=== PATIENT | female | born 1950 | race Caucasian/White ===

== ENCOUNTER 2020-03-06 22:24 | Emergency (ER) | payer SELFPAY ==
[~2020-03-06] VITALS: Ht 160 cm; Wt 136.0 kg
--- NOTE | 2020-03-06 22:53 | NUR ---
PT REPORT BILATERAL LE AND PEDAL EDEMA X3 DAYS. PLACED ON VITALS MONITORS, CALL LIGHT PLACED WITHIN REACH.
[2020-03-06 23:29] LABS: BASOPHILS # (AUTO) 0.03 x10^3/uL (0-0.1); BASOPHILS % (AUTO) 0 % (0-1); EOSINOPHILS # (AUTO) 0.19 x10^3/uL (0-0.4); EOSINOPHILS % (AUTO) 3 % (1-7); LYMPHOCYTES # (AUTO) 1.29 x10^3/uL (1-3.4); LYMPHOCYTES % (AUTO) 21 % (22-44); MD NO; MEAN CORPUSCULAR HEMOGLOBIN 28.4 pg (27.0-34.8); MEAN CORPUSCULAR HGB CONC 33.2 g/dL (32.4-35.8); MEAN CORPUSCULAR VOLUME 85.6 fL (80-100); MONOCYTES # (AUTO) 0.51 x10^3/uL (0.2-0.8); MONOCYTES % (AUTO) 8 % (2-9); NEUTROPHILS # (AUTO) 4.28 x10^3/uL (1.8-6.8); NEUTROPHILS % (AUTO) 68 % (42-75); PLATELET COUNT 193 x10^3/uL (130-400); RED BLOOD COUNT 4.11 x10^6/uL (3.82-5.3); RED CELL DISTRIBUTION WIDTH 15.3 % (9.6-15.2)
[2020-03-06 23:40] LABS: ALBUMIN 3.6 g/dL (3.4-5.0); ANION GAP 3 mmol/L (5-15); CALCIUM 8.2 mg/dL (8.5-10.1); CHLORIDE 104 mmol/L (98-107); CREATININE 1.01 mg/dL (0.55-1.02)
[2020-03-06 23:50] LABS: FREE T4 (FREE THYROXINE) 0.97 ng/dL (0.76-1.46)
[2020-03-07 00:45] VITALS: BP 189/83
== END 2020-03-07 01:10 | disposition home or self-care (01) ==
LOC: ED 03-07 00:30
DX: K02.9 Dental caries, unspecified (principal); R60.0 Localized edema; I10 Essential (primary) hypertension
CPT/HCPCS: 36415; 80048; 82040; 83880; 84439; 84443; 85025; 99283